=== PATIENT | male | born 1975 ===

== ENCOUNTER → 2018-05-04 | Outpatient (CLI) | payer OTHER | END | disposition home or self-care (01) | LOC: LAB SHORT 16:26 → LAB 16:26 | DX: B35.1 Tinea unguium (principal); L60.2 Onychogryphosis | CPT/HCPCS: 88305; 88312 ==

== ENCOUNTER → 2019-01-17 | Outpatient (CLI) | payer OTHER ==
[2019-01-19 01:08] LABS: CHLAMYDIA TRACHOMATIS, NAA Negative (Negative); NEISSERIA GONORRHOEAE, NAA Negative (Negative)
== END ==
LOC: LAB 17:30 → LAB SHORT 17:30
PROVIDERS: Registered Nurse Community Health
DX: Z11.3 Encounter for screening for infections with a predominantly sexual mode of transmission (principal)
CPT/HCPCS: 87491; 87591

== ENCOUNTER 2022-10-01 02:36 | Emergency (ER) | payer OTHER ==
[~2022-10-01] VITALS: Ht 182.9 cm; Wt 108.0 kg
[2022-10-01 04:49] LABS: BASOPHILS ABSOLUTE AUTO 0.07 K/mm3 (0.00-0.23); BASOPHILS PERCENT AUTO 1 % (0-2); EOSINOPHILS ABSOLUTE AUTO 0.51 K/mm3 (0.00-0.68); EOSINOPHILS PERCENT AUTO 4 % (0-6); Hematocrit 37.8 % (37.0-53.0); Hemoglobin 13.4 g/dL (13.5-17.5); IMMATURE GRAN ABSOLUTE AUTO 0.04 K/mm3 (0.00-0.10); IMMATURE GRAN PERCENT AUTO 0 % (0-1); LYMPHOCYTES ABSOLUTE AUTO 2.29 K/mm3 (0.84-5.20); LYMPHOCYTES PERCENT AUTO 19 % (21-46); MONOCYTES ABSOLUTE AUTO 0.96 K/mm3 (0.16-1.47); MONOCYTES PERCENT AUTO 8 % (4-13); Mean Corpuscular HGB 30.8 pg (26.0-34.0); Mean Corpuscular HGB Conc 35.4 g/dL (31.5-36.5); Mean Corpuscular Volume 87 fL (80-100); Mean Platelet Volume 9.9 fL (9.1-12.4); NEUTROPHILS ABSOLUTE AUTO 8.34 K/mm3 (1.96-9.15); NEUTROPHILS PERCENT AUTO 68 % (41-73); Platelet Count 288 K/mm3 (150-400); RDW Coefficient Variation 12.7 % (11.7-14.2); RDW Standard Deviation 40.2 fL (35.1-46.3); Red Blood Cell Count 4.35 M/mm3 (4.30-5.90); White Blood Cell Count 12.21 K/mm3 (4.00-11.30)
[2022-10-01 05:31] LABS: Albumin, Blood 3.1 g/dL (3.4-5.0); Albumin/Globulin Ratio 0.8 (0.8-1.8); Bilirubin, Total 0.3 mg/dL (0.1-1.0); Bun/Creatinine Ratio 12.6 (12.0-20.0); Calcium, Blood 8.6 mg/dL (8.5-10.1); Creatinine, Blood 0.96 mg/dL (0.60-1.20); Globulin, Blood 3.9 g/dL (2.2-4.0); Potassium, Blood 4.1 mmol/L (3.5-5.5)
[2022-10-01] MEDS ORDERED: MAGCIT300 PO (07:06)
[2022-10-01] MEDS ORDERED: DOCU100 PO (07:06)
[2022-10-01] MEDS ORDERED: PROBIOTIC1 EA13 PO (07:06)
== END 2022-10-01 07:32 | disposition home or self-care (01) ==
LOC: ER 02:36
PROVIDERS: Student in an Organized Health Care Education/Training Program
DX: R10.9 Unspecified abdominal pain (principal); K59.00 Constipation, unspecified; E11.9 Type 2 diabetes mellitus without complications; F17.210 Nicotine dependence, cigarettes, uncomplicated; Z88.8 Allergy status to other drugs, medicaments and biological substances
CPT/HCPCS: 36415; 74018; 80053; 83690; 85025

== ENCOUNTER 2022-10-08 16:31 | Inpatient (IN) | payer OTHER ==
[~2022-10-08] VITALS: Ht 182.9 cm; Wt 103.4 kg
[~2022-10-08 16:31] MED LIST: DOCU100 PO; MAGCIT300 PO; PROBIOTIC1 EA13 PO
[2022-10-08 17:02] LABS: BASOPHILS ABSOLUTE AUTO 0.08 K/mm3 (0.00-0.23); BASOPHILS PERCENT AUTO 1 % (0-2); EOSINOPHILS ABSOLUTE AUTO 0.44 K/mm3 (0.00-0.68); EOSINOPHILS PERCENT AUTO 3 % (0-6); Hematocrit 41.4 % (37.0-53.0); Hemoglobin 14.6 g/dL (13.5-17.5); IMMATURE GRAN ABSOLUTE AUTO 0.09 K/mm3 (0.00-0.10); IMMATURE GRAN PERCENT AUTO 1 % (0-1); LYMPHOCYTES ABSOLUTE AUTO 2.38 K/mm3 (0.84-5.20); LYMPHOCYTES PERCENT AUTO 17 % (21-46); MONOCYTES ABSOLUTE AUTO 1.13 K/mm3 (0.16-1.47); MONOCYTES PERCENT AUTO 8 % (4-13); Mean Corpuscular HGB 30.7 pg (26.0-34.0); Mean Corpuscular HGB Conc 35.3 g/dL (31.5-36.5); Mean Corpuscular Volume 87 fL (80-100); Mean Platelet Volume 9.6 fL (9.1-12.4); NEUTROPHILS ABSOLUTE AUTO 9.84 K/mm3 (1.96-9.15); NEUTROPHILS PERCENT AUTO 71 % (41-73); Platelet Count 365 K/mm3 (150-400); RDW Coefficient Variation 12.4 % (11.7-14.2); RDW Standard Deviation 39.7 fL (35.1-46.3); Red Blood Cell Count 4.76 M/mm3 (4.30-5.90); White Blood Cell Count 13.96 K/mm3 (4.00-11.30)
[2022-10-08 17:26] LABS: Albumin, Blood 3.7 g/dL (3.4-5.0); Albumin/Globulin Ratio 0.8 (0.8-1.8); Bilirubin, Total 0.4 mg/dL (0.1-1.0); Bun/Creatinine Ratio 10.1 (12.0-20.0); Calcium, Blood 9.9 mg/dL (8.5-10.1); Globulin, Blood 4.8 g/dL (2.2-4.0); Potassium, Blood 3.9 mmol/L (3.5-5.5); Total Protein, Blood 8.5 g/dL (6.4-8.2)
[2022-10-08] MEDS ORDERED: Zoloft50 MG PO (18:23)
[2022-10-08] MEDS ORDERED: METF500 PO (18:23)
[2022-10-08] MEDS ORDERED: Zestril30 MG PO (18:23)
[2022-10-08] MEDS ORDERED: GABA300 PO (18:24)
[2022-10-08] MEDS ORDERED: EMTRICITABINE-1 EAC1 PO (18:24)
[2022-10-08] MEDS ORDERED: TRULICITY1.5 MG/0.1 SC (18:24)
[2022-10-08] MEDS ORDERED: BUPR75 PO (18:24)
[2022-10-08] MEDS ORDERED: Simvastatin40 MG PO (18:24)
[2022-10-08 19:08] LABS: Triglycerides 253 mg/dL (30-160)
[2022-10-08] MEDS ORDERED: PAROEX473 ML PO (21:14)
[2022-10-08] MEDS ORDERED: SILDENAFIL CIT100 MG PO (21:17)
--- NOTE | 2022-10-08 22:22 | NUR ---
PATIENT IS A NEW ADMIT FROM THE ED. SBA TRANSFER FROM [facility] TO BED. AXO X 4 REPORTING A DIRECTOR OF ACCOUNTS RECEIVABLE FOR TWENTY YEARS. ON ROOM AIR. DENIES CHEST PAIN AND SOB. TOLERATING MILD ABDOMEN PAIN AND NAUSEA AT THIS TIME, REFUSING PAIN MEDICATION AND ASKED FOR ICE CHIPS INSTEAD. LR INFUSING AT 150 mL/HR FROM THE ED. ORIENTED TO ROOM AND CALL LIGHT SYSTEM. WCTM.
--- NOTE | 2022-10-09 04:23 | NUR ---
SHIFT SUMMARY PATIENT HAD NO ACUTE CHANGES. ALERT AND ORIENTED. INDEPENDENT BUT CHOOSING TO USE URINAL AT BEDSIDE. PIV REMAINS INTACT. LR INFUSING AT 150 mL/HR. REPORTED ABDOMEN PAIN X TWO AND IV FENTANYL 25 MCG GIVEN PER EMAR WITH GOOD EFFECT. PATIENT ABLE TO SLEEP. MILD NAUSEA AT TIMES REFUSING MEDICATION. ON ROOM AIR. CBG Q6 CHECK 157. REPORTED DRANK PART OF FOUNTAIN DRINK AND HAD INCREASED ABDOMEN PAIN. CLEAR LIQUID DIET. CALL LIGHT IN REACH. BED IN LOWEST POSITION. WILL CONTINUE TO MONITOR UNTIL DAY SHIFT NURSE ASSUMES CARE.
[2022-10-09 05:26] LABS: BASOPHILS ABSOLUTE AUTO 0.04 K/mm3 (0.00-0.23); BASOPHILS PERCENT AUTO 0 % (0-2); EOSINOPHILS ABSOLUTE AUTO 0.59 K/mm3 (0.00-0.68); EOSINOPHILS PERCENT AUTO 6 % (0-6); Hematocrit 32.7 % (37.0-53.0); Hemoglobin 11.5 g/dL (13.5-17.5); IMMATURE GRAN ABSOLUTE AUTO 0.07 K/mm3 (0.00-0.10); IMMATURE GRAN PERCENT AUTO 1 % (0-1); LYMPHOCYTES ABSOLUTE AUTO 2.95 K/mm3 (0.84-5.20); LYMPHOCYTES PERCENT AUTO 29 % (21-46); MONOCYTES PERCENT AUTO 10 % (4-13); Mean Corpuscular HGB 30.7 pg (26.0-34.0); Mean Corpuscular HGB Conc 35.2 g/dL (31.5-36.5); Mean Corpuscular Volume 87 fL (80-100); Mean Platelet Volume 9.9 fL (9.1-12.4); NEUTROPHILS PERCENT AUTO 54 % (41-73); Platelet Count 300 K/mm3 (150-400); RDW Coefficient Variation 12.5 % (11.7-14.2); RDW Standard Deviation 40.3 fL (35.1-46.3); Red Blood Cell Count 3.74 M/mm3 (4.30-5.90); White Blood Cell Count 10.05 K/mm3 (4.00-11.30)
[2022-10-09 06:39] LABS: Bun/Creatinine Ratio 9.8 (12.0-20.0); Calcium, Blood 8.6 mg/dL (8.5-10.1); Creatinine, Blood 0.92 mg/dL (0.60-1.20); Potassium, Blood 3.5 mmol/L (3.5-5.5)
--- NOTE | 2022-10-09 16:23 | NUR ---
PT AOX4 AND COOPERATIVE OF CARE. PT HAS CONTINUED TO HAVE ABD PAIN, BUT STATES PAIN IS IMPROVING. PT HAS BEEN ABLE TO TOLERATE ORAL MEDICATIONS AND CLEAR DIET. PT IS INDEPENDENT IN ROOM AND CALLS APPROPRIATELY. WILL CONITINUE MONITOR CALL LIGHT WITHIN REACH.
--- NOTE | 2022-10-10 04:15 | NUR ---
SHIFT SUMMARY PATIENT HAD NO ACUTE CHANGES OBSERVED. AXOX 4 AND INDEPENDENT IN ROOM. REPORTED ABDOMEN PAIN X ONE AND TYLENOL 650 MG GIVEN AFTER PATIENT DID NOT WANT NORCO. VSS/AFEBRILE. DENIES CHEST PAIN, SOB, AND N/V. Q6 CBG 273. SLEPT MOST OF THE SHIFT. CALL LIGHT IN REACH. BED IN LOWEST POSITION. WILL CONTINUE TO MONITOR UNTIL DAY SHIFT NURSE ASSUMES CARE.
[2022-10-10 06:22] LABS: Albumin, Blood 2.6 g/dL (3.4-5.0); Albumin/Globulin Ratio 0.6 (0.8-1.8); Bilirubin, Total 0.4 mg/dL (0.1-1.0); Bun/Creatinine Ratio 7.5 (12.0-20.0); Calcium, Blood 8.6 mg/dL (8.5-10.1); Creatinine, Blood 0.94 mg/dL (0.60-1.20); Globulin, Blood 4.1 g/dL (2.2-4.0); Potassium, Blood 3.6 mmol/L (3.5-5.5); Total Protein, Blood 6.7 g/dL (6.4-8.2)
[2022-10-10] MEDS ORDERED: ROXICODONE5 MG PO (15:45)
[2022-10-10] MEDS ORDERED: SENN187 PO (15:46)
--- NOTE | 2022-10-10 16:48 | NUR ---
DISCHARGE PT A&OX4 AT TIME OF DC. MOM PROVIDING TRANSPORT, PT PROVIDED W/ HARD SCRIPT. IV DCED. TOLERATING PO INTAKE. REFUSED ESCORT TO [facility].
== END 2022-10-10 16:20 | disposition short-term general hospital (02) | DRG 440 ==
LOC: ER 16:31 → MEDS 16:32
PROVIDERS: Family Medicine; Physician Assistant; Student in an Organized Health Care Education/Training Program; ADMIT Internal Medicine
DX: K85.90 Acute pancreatitis without necrosis or infection, unspecified (principal); E11.9 Type 2 diabetes mellitus without complications; I10 Essential (primary) hypertension; F32.9 Major depressive disorder, single episode, unspecified; K86.1 Other chronic pancreatitis; F17.210 Nicotine dependence, cigarettes, uncomplicated; F12.10 Cannabis abuse, uncomplicated; Z79.84 Long term (current) use of oral hypoglycemic drugs; Z79.811 Long term (current) use of aromatase inhibitors; Z90.49 Acquired absence of other specified parts of digestive tract; Z88.8 Allergy status to other drugs, medicaments and biological substances; Z79.899 Other long term (current) drug therapy; Z87.19 Personal history of other diseases of the digestive system; Z98.890 Other specified postprocedural states
CPT/HCPCS: 36415; 74177; 80048; 80053; 82947; 83690; 84478; 85025; 96361; 96374; 96375; 96376; 99284-25; A9270; C9113; G0378; J1170; J1815; J2405; J3010; J7120; Q9967

== ENCOUNTER 2023-03-15 21:04 | Emergency (ER) | payer OTHER ==
[~2023-03-15] VITALS: Ht 180.3 cm; Wt 101.6 kg
[~2023-03-15 21:04] MED LIST changes: +BUPR75 PO; +EMTRICITABINE-1 EAC1 PO; +GABA300 PO; +METF500 PO; +PAROEX473 ML PO; +ROXICODONE5 MG PO; +SENN187 PO; +SILDENAFIL CIT100 MG PO; +Simvastatin40 MG PO; +TRULICITY1.5 MG/0.1 SC; +Zestril30 MG PO; +Zoloft50 MG PO
[2023-03-15 21:25] VITALS: BP 168/103
[2023-03-15 21:56] LABS: BASOPHILS ABSOLUTE AUTO 0.07 K/mm3 (0.00-0.23); BASOPHILS PERCENT AUTO 1 % (0-2); EOSINOPHILS ABSOLUTE AUTO 0.46 K/mm3 (0.00-0.68); EOSINOPHILS PERCENT AUTO 4 % (0-6); Hematocrit 39.2 % (37.0-53.0); Hemoglobin 13.2 g/dL (13.5-17.5); IMMATURE GRAN ABSOLUTE AUTO 0.05 K/mm3 (0.00-0.10); IMMATURE GRAN PERCENT AUTO 0 % (0-1); LYMPHOCYTES ABSOLUTE AUTO 2.88 K/mm3 (0.84-5.20); LYMPHOCYTES PERCENT AUTO 24 % (21-46); MONOCYTES ABSOLUTE AUTO 1.19 K/mm3 (0.16-1.47); MONOCYTES PERCENT AUTO 10 % (4-13); Mean Corpuscular HGB 30.3 pg (26.0-34.0); Mean Corpuscular HGB Conc 33.7 g/dL (31.5-36.5); Mean Corpuscular Volume 90 fL (80-100); Mean Platelet Volume 9.9 fL (9.1-12.4); NEUTROPHILS ABSOLUTE AUTO 7.17 K/mm3 (1.96-9.15); NEUTROPHILS PERCENT AUTO 61 % (41-73); Platelet Count 273 K/mm3 (150-400); RDW Coefficient Variation 12.9 % (11.7-14.2); RDW Standard Deviation 42.4 fL (35.1-46.3); Red Blood Cell Count 4.36 M/mm3 (4.30-5.90); White Blood Cell Count 11.82 K/mm3 (4.00-11.30)
[2023-03-15 22:15] LABS: Albumin, Blood 3.3 g/dL (3.4-5.0); Albumin/Globulin Ratio 0.7 (0.8-1.8); Bilirubin, Total 0.3 mg/dL (0.1-1.0); Bun/Creatinine Ratio 20.3 (12.0-20.0); Calcium, Blood 9.3 mg/dL (8.5-10.1); Creatinine, Blood 1.23 mg/dL (0.60-1.20); Globulin, Blood 4.5 g/dL (2.2-4.0); Potassium, Blood 4.9 mmol/L (3.5-5.5); Total Protein, Blood 7.8 g/dL (6.4-8.2)
[2023-03-15] MEDS ORDERED: Keflex500 MG PO (22:25)
[2023-03-23] MEDS ORDERED: TRULICITY0.75 MG/01 SC (01:21)
[2023-03-23] MEDS ORDERED: BASAGLAR K100 UNIT/1 SC (01:22)
[2023-03-23] MEDS ORDERED: ALBU90OI INH (01:23)
== END 2023-03-15 22:40 | disposition home or self-care (01) ==
LOC: ER 21:04
PROVIDERS: Student in an Organized Health Care Education/Training Program
DX: S91.302A Unspecified open wound, left foot, initial encounter (principal); X58.XXXA Exposure to other specified factors, initial encounter; I10 Essential (primary) hypertension; E78.5 Hyperlipidemia, unspecified; E11.40 Type 2 diabetes mellitus with diabetic neuropathy, unspecified; F17.210 Nicotine dependence, cigarettes, uncomplicated; Z88.8 Allergy status to other drugs, medicaments and biological substances; Z79.899 Other long term (current) drug therapy; Z79.84 Long term (current) use of oral hypoglycemic drugs
CPT/HCPCS: 73630; 80053; 83605; 85025; 99283-25; A9270

== ENCOUNTER → 2023-03-19 | Outpatient (CLI) | payer OTHER ==
[~2023-03-19] MED LIST changes: +ALBU90OI INH; +BASAGLAR K100 UNIT/1 SC; +Keflex500 MG PO; +TRULICITY0.75 MG/01 SC
== END | disposition home or self-care (01) ==
LOC: LAB SHORT 11:07 → LAB 11:07
DX: L97.522 Non-pressure chronic ulcer of other part of left foot with fat layer exposed (principal); L03.116 Cellulitis of left lower limb
CPT/HCPCS: 87070; 87077; 87147; 87186; 87205

== ENCOUNTER 2023-04-09 04:31 | Day surgery (SDC) | payer OTHER ==
[~2023-04-09 04:31] MED LIST changes: +Acetaminophen650 M1 PO; +DULCOLAX400 MG/5 M PO; +HUMALOG KW100 UNIT/1 SC; +JUVEN PACKET1 EAC3 PO; +NORVASC10 MG PO; +Percocet 5-3251 EACH PO; +TUMS500 MG PO; +VISBIOME 112.51 EACH PO; +Vancomycin1 GM/2501 IV
== END 2023-04-09 23:02 | disposition home or self-care (01) ==
LOC: WOUND 04:31
PROC: 0JBR0ZZ Excision of Left Foot Subcutaneous Tissue and Fascia, Open Approach (ICD-10-PCS; principal; 2023-04-09)
DX: E11.69 Type 2 diabetes mellitus with other specified complication (principal); E11.621 Type 2 diabetes mellitus with foot ulcer; L97.426 Non-pressure chronic ulcer of left heel and midfoot with bone involvement without evidence of necrosis; M86.9 Osteomyelitis, unspecified; E11.40 Type 2 diabetes mellitus with diabetic neuropathy, unspecified; E78.5 Hyperlipidemia, unspecified; Z88.8 Allergy status to other drugs, medicaments and biological substances; Z87.891 Personal history of nicotine dependence
CPT/HCPCS: 99406; A9270; G0463

== ENCOUNTER 2023-04-16 02:44 | Day surgery (SDC) | payer OTHER ==
[~2023-04-16 02:44] MED LIST changes: -HUMALOG KW100 UNIT/1 SC; +HUMALOG100 UNIT/1 SC
== END 2023-04-16 23:43 | disposition home or self-care (01) ==
LOC: WOUND 02:44
DX: E11.621 Type 2 diabetes mellitus with foot ulcer (principal); L97.523 Non-pressure chronic ulcer of other part of left foot with necrosis of muscle; L97.522 Non-pressure chronic ulcer of other part of left foot with fat layer exposed; E11.69 Type 2 diabetes mellitus with other specified complication; M86.172 Other acute osteomyelitis, left ankle and foot; B95.62 Methicillin resistant Staphylococcus aureus infection as the cause of diseases classified elsewhere; L03.116 Cellulitis of left lower limb; Z72.0 Tobacco use
CPT/HCPCS: A9270

== ENCOUNTER 2023-04-18 00:09 | Emergency (ER) | payer OTHER ==
[~2023-04-18] VITALS: Ht 180.3 cm; Wt 97.5 kg
[2023-04-18 00:44] VITALS: BP 137/78
== END 2023-04-18 03:32 | disposition home or self-care (01) ==
LOC: ER 00:09
DX: T82.524A Displacement of infusion catheter, initial encounter (principal); I10 Essential (primary) hypertension; E78.5 Hyperlipidemia, unspecified; F32.9 Major depressive disorder, single episode, unspecified; E11.40 Type 2 diabetes mellitus with diabetic neuropathy, unspecified; Z79.899 Other long term (current) drug therapy; Z79.2 Long term (current) use of antibiotics; Z79.4 Long term (current) use of insulin; Z88.8 Allergy status to other drugs, medicaments and biological substances
CPT/HCPCS: 71045; 99283-25; A9270; C1751

== ENCOUNTER 2023-04-23 01:15 | Day surgery (SDC) | payer OTHER ==
[~2023-04-23 01:15] MED LIST changes: +HUMALOG KW100 UNIT/1 SC; -HUMALOG100 UNIT/1 SC
== END 2023-04-23 22:58 | disposition home or self-care (01) ==
LOC: WOUND 01:15
DX: E11.621 Type 2 diabetes mellitus with foot ulcer (principal); L97.426 Non-pressure chronic ulcer of left heel and midfoot with bone involvement without evidence of necrosis; L97.523 Non-pressure chronic ulcer of other part of left foot with necrosis of muscle; E11.69 Type 2 diabetes mellitus with other specified complication; M86.172 Other acute osteomyelitis, left ankle and foot; B95.62 Methicillin resistant Staphylococcus aureus infection as the cause of diseases classified elsewhere; Z72.0 Tobacco use; L03.116 Cellulitis of left lower limb
CPT/HCPCS: 73630; A9270; G0463

== ENCOUNTER 2023-04-25 17:03 | Inpatient (IN) | payer OTHER ==
[~2023-04-25] VITALS: Ht 182.9 cm; Wt 103.9 kg
[2023-04-25 18:13] LABS: BASOPHILS ABSOLUTE AUTO 0.09 K/mm3 (0.00-0.23); BASOPHILS PERCENT AUTO 1 % (0-2); EOSINOPHILS ABSOLUTE AUTO 0.65 K/mm3 (0.00-0.68); EOSINOPHILS PERCENT AUTO 6 % (0-6); Hematocrit 33.2 % (37.0-53.0); Hemoglobin 11.5 g/dL (13.5-17.5); IMMATURE GRAN ABSOLUTE AUTO 0.08 K/mm3 (0.00-0.10); IMMATURE GRAN PERCENT AUTO 1 % (0-1); LYMPHOCYTES ABSOLUTE AUTO 3.21 K/mm3 (0.84-5.20); LYMPHOCYTES PERCENT AUTO 31 % (21-46); MONOCYTES ABSOLUTE AUTO 0.92 K/mm3 (0.16-1.47); MONOCYTES PERCENT AUTO 9 % (4-13); Mean Corpuscular HGB 29.5 pg (26.0-34.0); Mean Corpuscular HGB Conc 34.6 g/dL (31.5-36.5); Mean Corpuscular Volume 85 fL (80-100); Mean Platelet Volume 8.9 fL (9.1-12.4); NEUTROPHILS ABSOLUTE AUTO 5.41 K/mm3 (1.96-9.15); NEUTROPHILS PERCENT AUTO 52 % (41-73); Platelet Count 333 K/mm3 (150-400); RDW Coefficient Variation 12.8 % (11.7-14.2); RDW Standard Deviation 39.4 fL (35.1-46.3); White Blood Cell Count 10.36 K/mm3 (4.00-11.30)
[2023-04-25 18:47] LABS: Albumin, Blood 3.6 g/dL (3.4-5.0); Albumin/Globulin Ratio 0.7 (0.8-1.8); Bilirubin, Total 0.4 mg/dL (0.1-1.0); Bun/Creatinine Ratio 25.5 (12.0-20.0); C-REACTIVE PROTEIN, EXT RANGE 4.72 mg/dL (0.000-0.300); Calcium, Blood 9.6 mg/dL (8.5-10.1); Creatinine, Blood 1.1 mg/dL (0.60-1.20); Globulin, Blood 4.9 g/dL (2.2-4.0); Potassium, Blood 4.6 mmol/L (3.5-5.5); Total Protein, Blood 8.5 g/dL (6.4-8.2)
[2023-04-26 02:08] VITALS: BP 141/75
[2023-04-26 05:15] LABS: BASOPHILS ABSOLUTE AUTO 0.07 K/mm3 (0.00-0.23); BASOPHILS PERCENT AUTO 1 % (0-2); EOSINOPHILS ABSOLUTE AUTO 0.91 K/mm3 (0.00-0.68); EOSINOPHILS PERCENT AUTO 11 % (0-6); Hematocrit 28.7 % (37.0-53.0); Hemoglobin 9.9 g/dL (13.5-17.5); IMMATURE GRAN ABSOLUTE AUTO 0.09 K/mm3 (0.00-0.10); IMMATURE GRAN PERCENT AUTO 1 % (0-1); LYMPHOCYTES ABSOLUTE AUTO 2.84 K/mm3 (0.84-5.20); LYMPHOCYTES PERCENT AUTO 34 % (21-46); MONOCYTES ABSOLUTE AUTO 0.84 K/mm3 (0.16-1.47); MONOCYTES PERCENT AUTO 10 % (4-13); Mean Corpuscular HGB 29.3 pg (26.0-34.0); Mean Corpuscular HGB Conc 34.5 g/dL (31.5-36.5); Mean Corpuscular Volume 85 fL (80-100); Mean Platelet Volume 9.2 fL (9.1-12.4); NEUTROPHILS ABSOLUTE AUTO 3.59 K/mm3 (1.96-9.15); NEUTROPHILS PERCENT AUTO 43 % (41-73); Platelet Count 279 K/mm3 (150-400); RDW Coefficient Variation 12.9 % (11.7-14.2); RDW Standard Deviation 39.4 fL (35.1-46.3); Red Blood Cell Count 3.38 M/mm3 (4.30-5.90); White Blood Cell Count 8.34 K/mm3 (4.00-11.30)
[2023-04-26 05:40] LABS: Albumin, Blood 2.9 g/dL (3.4-5.0); Albumin/Globulin Ratio 0.7 (0.8-1.8); Bilirubin, Total 0.3 mg/dL (0.1-1.0); Bun/Creatinine Ratio 27.8 (12.0-20.0); Calcium, Blood 8.6 mg/dL (8.5-10.1); Creatinine, Blood 1.08 mg/dL (0.60-1.20); Potassium, Blood 4.2 mmol/L (3.5-5.5); Total Protein, Blood 6.9 g/dL (6.4-8.2)
[2023-04-26 07:18] VITALS: BP 125/71
--- NOTE | 2023-04-26 11:10 | NUR ---
CALL FROM MARKO AT [facility]; GIVEN UPDATE. 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
--- NOTE | 2023-04-26 11:15 | NUR ---
PER DR MTZ: ADD AC/HS SUGARS WITH MEDIUM SLIDING SCALE COVERAGE.
[2023-04-26 13:37] LABS: Vancomycin, Trough 16.8 ug/mL (5.0-10.0)
[2023-04-26 15:13] VITALS: BP 149/78
--- NOTE | 2023-04-26 20:05 | NUR ---
DAY SHIFT SUMMARY A&Ox4. PLEASANT AND COOPERATIVE WITH CARE. ADA DIET ALL DAY WITH PLANS TO BE NPO AFTER MIDNIGHT; ANTICIPATE SURGICAL REMOVAL OF LEFT 4TH AND 5TH METATARSALS. ABx ALL DAY ALTERNATING BETWEEN ZOSYN AND VANCO. POWERGLIDE NICKO POSITIONAL; BANDAGE CHANGED AND CATHETER NOTED TO BE KINKED. WOUND CARE PROVIDED. PER DR MTZ, OK TO PLACE PICC LINE IF SOMEONE AVAILABLE TO DO SO TONIGHT. SOME TEARFULNESS WHEN TOLD HE'D NEED SURGERY TO REMOVE TOES; FAMILY CAME TO VISIT AND THIS SEEMED TO HELP. ADDITION OF PRN DIPHENHYDRAMINE FOR PRURITIC RASH HE C/O HAVING HAD SINCE SEPTEMBER. REPORT TO ONCOMING RN.
[2023-04-26 21:10] VITALS: BP 142/81
[2023-04-27] VITALS (11 sets, daily range): BP systolic 121–163; BP diastolic 81–97
[2023-04-27 06:19] LABS: Calcium, Blood 8.8 mg/dL (8.5-10.1); Potassium, Blood 4.4 mmol/L (3.5-5.5)
--- NOTE | 2023-04-27 06:30 | NUR ---
SHIFT HEROY, PT ANIOUS ABOUT SURGERY TODAY. PT MORNING THE LOST OF HIS 2 TOES. PT WAS MEDICATED X 2 FOR PAIN. PT CALM AMD COOPERATIVE. CALL LIGHT IN REACH FIRE SAFETY REVIEWED.
[2023-04-27 13:31] LABS: Vancomycin, Trough 16.8 ug/mL (5.0-10.0)
--- NOTE | 2023-04-27 18:07 | NUR ---
SHIFT SUMMARY PT IS ALERT AND ORIENTED X4. SITTING UP IN BED WITH LEFT EXTREMITY ELEVATED. PT RETURNED FROM SURGERY AROUND 1800. I RE-ENFORCED WOUND DRESSING WITH ABD PAD AND LORENZO WRAP. PER ORDER, DO NOT REMOVE UNTIL SURGEON SEES PT AGAIN. PAIN HAD BEEN ADEQUATELY CONTROLLED WITH MEDICATION SO FAR. PT REPORTS BURNING SENSATION WHERE 4TH AND 5TH TOE WERE LOCATED. PT MOTHER IS AT BEDSIDE. BED IS IN THE LOWEST POSITION WITH CALL LIGHT IN REACH.
--- NOTE | 2023-04-28 03:20 | NUR ---
SHIFT SUMMERY. PT MEDICATED FOR PAIN X2. PT RESTING IN BED, WITH LEFT FOOT ELEVATED. PT SO FAR THIS SHIFT HAS NOT NEEDED DRG TO LEFT FOOT REINFORCED. PT HAVING INTERMITANT SLEEP. CALL LIGHT IN REACH.
--- NOTE | 2023-04-28 03:38 | NUR ---
FIRE SAFETY REVIEWED.
[2023-04-28 04:48] LABS: BASOPHILS ABSOLUTE AUTO 0.08 K/mm3 (0.00-0.23); BASOPHILS PERCENT AUTO 1 % (0-2); EOSINOPHILS ABSOLUTE AUTO 0.97 K/mm3 (0.00-0.68); EOSINOPHILS PERCENT AUTO 12 % (0-6); Hematocrit 27.7 % (37.0-53.0); Hemoglobin 9.5 g/dL (13.5-17.5); IMMATURE GRAN ABSOLUTE AUTO 0.03 K/mm3 (0.00-0.10); IMMATURE GRAN PERCENT AUTO 0 % (0-1); LYMPHOCYTES PERCENT AUTO 30 % (21-46); MONOCYTES ABSOLUTE AUTO 0.73 K/mm3 (0.16-1.47); MONOCYTES PERCENT AUTO 9 % (4-13); Mean Corpuscular HGB 29.5 pg (26.0-34.0); Mean Corpuscular HGB Conc 34.3 g/dL (31.5-36.5); Mean Corpuscular Volume 86 fL (80-100); Mean Platelet Volume 8.7 fL (9.1-12.4); NEUTROPHILS ABSOLUTE AUTO 3.94 K/mm3 (1.96-9.15); NEUTROPHILS PERCENT AUTO 48 % (41-73); Platelet Count 280 K/mm3 (150-400); RDW Coefficient Variation 12.7 % (11.7-14.2); RDW Standard Deviation 39.7 fL (35.1-46.3); Red Blood Cell Count 3.22 M/mm3 (4.30-5.90); White Blood Cell Count 8.25 K/mm3 (4.00-11.30)
[2023-04-28 04:57] VITALS: BP 141/80
[2023-04-28 05:08] LABS: Bun/Creatinine Ratio 21.6 (12.0-20.0); Calcium, Blood 8.5 mg/dL (8.5-10.1); Creatinine, Blood 0.97 mg/dL (0.60-1.20)
[2023-04-28 07:38] VITALS: BP 139/76
--- NOTE | 2023-04-28 09:09 | NUR ---
04/28/23 0909 Liz Olivarez VERIFICATIONS: EDIT CHART.
[2023-04-28 15:14] VITALS: BP 137/73
--- NOTE | 2023-04-28 17:01 | NUR ---
SHIFT SUMMARY PT AOX4, INDEPENDENT WITH HIS WHEELCHAIR (TWO WHEEL CART) TO THE BATHROOM, USING THE URINAL IN BED. PT HAS BEEN MEDICATED FOR PAIN THIS SHIFT, PAIN MEDICATIONS CHANGED PER THE EMAR. PT IS TOLERATING THE CHANGE WELL. PG TO THE NICKO, INFUSING OKAY. PT'S MOTHER AT THE BS TODAY. DRESSING LOOKS CDI. ABX ALSO CHANGED PER THE CULTURE. PT ALSO RECEIVED BENADRYL THIS SHIFT C/O ITCHING. PT IS ALSO A AC CBG CHECK. FIRE SAFETY PROTOCOLS AND PROCEDURES DISCUSSED AND PT VERBALIZED UNDERSTANDING. CALL LIGHT WITHIN REACH, BED IN THE LOWEST POSITION. WILL REPORT TO ONCOMING NURSE.
--- NOTE | 2023-04-28 23:28 | NUR ---
shift summery, pt medicated for pain and itching. pt resting well at this time. call light in reach. fire safety reviewed.
[2023-04-29 05:31] VITALS: BP 124/70
[2023-04-29 08:08] VITALS: BP 127/70
[2023-04-29 15:38] VITALS: BP 119/59
--- NOTE | 2023-04-29 17:15 | NUR ---
SHIFT SUMMARY PT AOX4, INDEPENDENT WITH HIS WHEEL CART TO THE BATHROOM. PT C/O PAIN THIS SHIFT AND WAS MEDICATED PER THE EMAR. PT HAS HAD NO OTHER COMPLAINTS. DRESSING TO THE L FOOT CDI. HIS MOTHER WAS AT THE BS THIS SHIFT. FIRE SAFETY PROTOCOLS AND PROCEDURES MAINTAINED, PT VERBALIZED UNDERSTANDING. CALL LIGHT WITHIN REACH, BED IN THE LOWEST POSITION. WILL REPORT TO ONCOMING NURSE.
[2023-04-29 20:12] VITALS: BP 122/80
--- NOTE | 2023-04-30 03:28 | NUR ---
SHIFT SUMMARY- PT ALERT AND ORIENTED. PAIN SEEMS WELL MANAGED WITH ORAL PAIN MEDICATION, DR EPSTEIN CAME AND CHANGED THE PT DRESSING AT HIFT CHANGE, PAIN WAS INCREASED AFTER THE DRESSING CHANGE, PT WAS MEDICATED VIA IV PAIN MEDS. PT ALERT, ORIENTED AND INDEPENDENT IN THE ROOM. PT USES THE CALL LIGHT APPROPRIATELY, CURRENTLY IN BED, CALL LIGHT IN REACH NO S&S OF DISTRESS.
[2023-04-30 05:04] VITALS: BP 159/86
[2023-04-30 08:09] VITALS: BP 132/82
[2023-04-30] MEDS ORDERED: CUBICIN RF500 M1 IV (15:38)
[2023-04-30] MEDS ORDERED: HYDACE10B PO (15:38)
[2023-04-30 16:07] VITALS: BP 123/71
--- NOTE | 2023-04-30 17:51 | NUR ---
DISCHARGE SUMMARY PT AxOx4. PLEASANT AND COOPERATIVE WITH CARE. PT POST OP DAY 3 FROM LEFT 4TH AND 5TH TOE AMPUTATION/RESECTION ON 4TH METATARSAL. PT REPORTS MANAGABLE PAIN THIS SHIFT, MEDS ADMINISTERED PER EMAR. POT LINER IN FOR CONSULT, PLACED PORTABLE WOUND VAC. PT IS DISCHARGING HOME TODAY WITH SIGNIFICANT OTHER. PT GIVEN IV ABX THIS AM. PROVIDED DC INSTRUCTIONS TO PATIENT INCLUDING DC MEDICATION LIST, NEED FOR FOLLOW UP APPOINTMENTS INCLUDING PODIATRY AND PCP, OUTPATIENT INFUSION SCHEDULE AND OUTPATIENT WOUND CAR, AND PATIENT EDUCATION. PT WAS ALSO PROVIDED EDUCATION ON FIRE RISK/SAFETY WITH VERBALIZED UNDERSTANDING. PT WAS SAFELY ESCORTED OUT VIA KNEE SCOOTER WITH THIS RN.
== END 2023-04-30 17:44 | disposition home health service (06) | DRG 617 ==
LOC: ER 17:03 → MEDS 17:04 → ER 17:04 → MEDS 17:04
PROVIDERS: Internal Medicine; Physician Assistant; Podiatrist; ADMIT Internal Medicine
PROC: 0Y6Y0Z0 Detachment at Left 5th Toe, Complete, Open Approach (ICD-10-PCS; 2023-04-27)
PROC: 0QBP0ZZ Excision of Left Metatarsal, Open Approach (ICD-10-PCS; 2023-04-27)
PROC: 0Y6W0Z0 Detachment at Left 4th Toe, Complete, Open Approach (ICD-10-PCS; principal; 2023-04-27 15:30)
DX: E11.69 Type 2 diabetes mellitus with other specified complication (principal); E11.52 Type 2 diabetes mellitus with diabetic peripheral angiopathy with gangrene; I96 Gangrene, not elsewhere classified; M86.8X7 Other osteomyelitis, ankle and foot; S91.105A Unspecified open wound of left lesser toe(s) without damage to nail, initial encounter; E11.42 Type 2 diabetes mellitus with diabetic polyneuropathy; I10 Essential (primary) hypertension; E11.621 Type 2 diabetes mellitus with foot ulcer; L97.524 Non-pressure chronic ulcer of other part of left foot with necrosis of bone; F32.9 Major depressive disorder, single episode, unspecified; D63.8 Anemia in other chronic diseases classified elsewhere; F41.9 Anxiety disorder, unspecified; E78.5 Hyperlipidemia, unspecified; F17.210 Nicotine dependence, cigarettes, uncomplicated; Z91.038 Other insect allergy status; Z88.8 Allergy status to other drugs, medicaments and biological substances; Z79.899 Other long term (current) drug therapy; Z79.4 Long term (current) use of insulin; Z79.2 Long term (current) use of antibiotics; Z79.891 Long term (current) use of opiate analgesic; Z90.49 Acquired absence of other specified parts of digestive tract; Z98.890 Other specified postprocedural states
CPT/HCPCS: 36415; 73660; 80048; 80053; 80202; 82947; 85025; 86140; 87071; 87075; 87205; 88305; 88311; 96365; 96366; 96368; 96375; 96376; 99284-25; A9270; C1713; G0378; J0878; J1170; J1815; J2001; J2250; J2405; J2543; J2704; J3010; J3370; J7030; J7050; J7120

== ENCOUNTER 2023-05-01 07:02 | Day surgery (SDC) | payer OTHER ==
[~2023-05-01 07:02] MED LIST changes: +CUBICIN RF500 M1 IV; +HYDACE10B PO
[2023-05-01 14:10] VITALS: BP 134/82
--- NOTE | 2023-05-01 15:15 | NUR ---
PT C/O NAUSEA OFF AND ON SINCE DISCHARGE. PC TO PCP'S OFFICE AT [facility]. SPOKE WITH LILIA STARKS. WHO WILL TALK WITH MD ABOUT GETTING A PRESCRIPTION FOR ZOFRAN INTO [facility] IN [place]. PT NOTIFIED THAT PCP'S OFFICE IS WORKING ON PRESCRIPTION.
== END 2023-05-01 14:48 | disposition home or self-care (01) ==
LOC: ATC 07:02
DX: E11.69 Type 2 diabetes mellitus with other specified complication (principal); M86.172 Other acute osteomyelitis, left ankle and foot; E78.5 Hyperlipidemia, unspecified; F32.A Depression, unspecified; E11.40 Type 2 diabetes mellitus with diabetic neuropathy, unspecified
CPT/HCPCS: 96365; J0878

== ENCOUNTER 2023-05-02 00:11 | Day surgery (SDC) | payer OTHER ==
[2023-05-02 14:12] VITALS: BP 148/78
== END 2023-05-02 14:44 | disposition home or self-care (01) ==
LOC: ATC 00:11
DX: E11.69 Type 2 diabetes mellitus with other specified complication (principal); M86.172 Other acute osteomyelitis, left ankle and foot; E78.5 Hyperlipidemia, unspecified; F17.210 Nicotine dependence, cigarettes, uncomplicated; F32.9 Major depressive disorder, single episode, unspecified; G62.9 Polyneuropathy, unspecified; Z88.8 Allergy status to other drugs, medicaments and biological substances
CPT/HCPCS: 96365; J0878

== ENCOUNTER 2023-05-03 03:43 | Day surgery (SDC) | payer OTHER ==
[2023-05-03 14:33] VITALS: BP 145/84
== END 2023-05-03 14:45 | disposition home or self-care (01) ==
LOC: ATC 03:43
DX: M86.172 Other acute osteomyelitis, left ankle and foot (principal); E78.5 Hyperlipidemia, unspecified; E11.40 Type 2 diabetes mellitus with diabetic neuropathy, unspecified
CPT/HCPCS: 96365; J0878

== ENCOUNTER 2023-05-04 00:10 | Day surgery (SDC) | payer OTHER ==
[2023-05-04 14:10] VITALS: BP 141/86
--- NOTE | 2023-05-04 15:27 | NUR ---
STAFF MIDWIFE CHANGED PT'S DRESSING WHILE HIS ANTIBIOTIC WAS RUNNING AND FINISHED HIS DRESSING AT 1525.
== END 2023-05-04 15:25 | disposition home or self-care (01) ==
LOC: ATC 00:10
DX: E11.69 Type 2 diabetes mellitus with other specified complication (principal); M86.172 Other acute osteomyelitis, left ankle and foot; F17.210 Nicotine dependence, cigarettes, uncomplicated; E78.5 Hyperlipidemia, unspecified; F32.A Depression, unspecified; E11.40 Type 2 diabetes mellitus with diabetic neuropathy, unspecified
CPT/HCPCS: 96365; J0878

== ENCOUNTER 2023-05-04 00:12 | Day surgery (SDC) | payer OTHER | END 2023-05-04 22:49 | disposition home or self-care (01) | LOC: WOUND 00:12 | DX: S91.302A Unspecified open wound, left foot, initial encounter (principal); E11.621 Type 2 diabetes mellitus with foot ulcer; E11.69 Type 2 diabetes mellitus with other specified complication; M86.172 Other acute osteomyelitis, left ankle and foot; L03.116 Cellulitis of left lower limb; B95.62 Methicillin resistant Staphylococcus aureus infection as the cause of diseases classified elsewhere; Z72.0 Tobacco use; Z89.422 Acquired absence of other left toe(s); X58.XXXA Exposure to other specified factors, initial encounter; E78.5 Hyperlipidemia, unspecified; F32.A Depression, unspecified; E11.40 Type 2 diabetes mellitus with diabetic neuropathy, unspecified | CPT/HCPCS: 96365; A9270; J0878 ==

== ENCOUNTER 2023-05-05 02:12 | Day surgery (SDC) | payer OTHER ==
[2023-05-05 14:15] VITALS: BP 127/87
== END 2023-05-05 14:42 | disposition home or self-care (01) ==
LOC: ATC 02:12
DX: M86.172 Other acute osteomyelitis, left ankle and foot (principal); E78.5 Hyperlipidemia, unspecified; F32.9 Major depressive disorder, single episode, unspecified; E11.40 Type 2 diabetes mellitus with diabetic neuropathy, unspecified
CPT/HCPCS: 96365; J0878

== ENCOUNTER 2023-05-06 02:27 | Day surgery (SDC) | payer OTHER | END 2023-05-06 22:55 | disposition home or self-care (01) | LOC: WOUND 02:27 | DX: E11.621 Type 2 diabetes mellitus with foot ulcer (principal); M86.172 Other acute osteomyelitis, left ankle and foot; E11.69 Type 2 diabetes mellitus with other specified complication; Z89.422 Acquired absence of other left toe(s); B95.62 Methicillin resistant Staphylococcus aureus infection as the cause of diseases classified elsewhere; Z72.0 Tobacco use; L03.116 Cellulitis of left lower limb ==

== ENCOUNTER 2023-05-06 02:30 | Day surgery (SDC) | payer OTHER ==
[2023-05-06 13:59] VITALS: BP 117/76
== END 2023-05-06 14:28 | disposition home or self-care (01) ==
LOC: ATC 02:30
DX: E11.69 Type 2 diabetes mellitus with other specified complication (principal); M86.172 Other acute osteomyelitis, left ankle and foot; F32.A Depression, unspecified; E11.40 Type 2 diabetes mellitus with diabetic neuropathy, unspecified; Z88.8 Allergy status to other drugs, medicaments and biological substances; E78.5 Hyperlipidemia, unspecified
CPT/HCPCS: 96365; J0878

== ENCOUNTER 2023-05-11 01:24 | Day surgery (SDC) | payer OTHER | END 2023-05-11 22:55 | disposition home or self-care (01) | LOC: WOUND 01:24 | DX: E11.621 Type 2 diabetes mellitus with foot ulcer (principal); L97.525 Non-pressure chronic ulcer of other part of left foot with muscle involvement without evidence of necrosis; E11.69 Type 2 diabetes mellitus with other specified complication; M86.172 Other acute osteomyelitis, left ankle and foot; B95.62 Methicillin resistant Staphylococcus aureus infection as the cause of diseases classified elsewhere; L03.116 Cellulitis of left lower limb; Z72.0 Tobacco use; Z89.422 Acquired absence of other left toe(s) | CPT/HCPCS: A9270 ==

== ENCOUNTER 2023-05-21 08:43 | Day surgery (SDC) | payer OTHER | END 2023-05-21 22:40 | disposition home or self-care (01) | LOC: WOUND 08:43 | DX: E11.621 Type 2 diabetes mellitus with foot ulcer (principal); L97.522 Non-pressure chronic ulcer of other part of left foot with fat layer exposed; E11.69 Type 2 diabetes mellitus with other specified complication; M86.172 Other acute osteomyelitis, left ankle and foot; B95.62 Methicillin resistant Staphylococcus aureus infection as the cause of diseases classified elsewhere; L03.116 Cellulitis of left lower limb; Z72.0 Tobacco use; Z89.422 Acquired absence of other left toe(s) ==

== ENCOUNTER 2023-05-25 01:31 | Day surgery (SDC) | payer OTHER | END 2023-05-25 22:50 | disposition home or self-care (01) | LOC: WOUND 01:31 | DX: E11.621 Type 2 diabetes mellitus with foot ulcer (principal); L97.509 Non-pressure chronic ulcer of other part of unspecified foot with unspecified severity; E11.69 Type 2 diabetes mellitus with other specified complication; M86.172 Other acute osteomyelitis, left ankle and foot; B95.62 Methicillin resistant Staphylococcus aureus infection as the cause of diseases classified elsewhere; L03.116 Cellulitis of left lower limb; Z72.0 Tobacco use ==

== ENCOUNTER 2023-05-29 00:44 | Day surgery (SDC) | payer OTHER | END 2023-05-29 22:48 | disposition home or self-care (01) | LOC: WOUND 00:44 | DX: E11.621 Type 2 diabetes mellitus with foot ulcer (principal); L97.525 Non-pressure chronic ulcer of other part of left foot with muscle involvement without evidence of necrosis; E11.69 Type 2 diabetes mellitus with other specified complication; M86.172 Other acute osteomyelitis, left ankle and foot; L03.116 Cellulitis of left lower limb; B95.62 Methicillin resistant Staphylococcus aureus infection as the cause of diseases classified elsewhere; Z72.0 Tobacco use; Z89.422 Acquired absence of other left toe(s) | CPT/HCPCS: A9270; G0463 ==

== ENCOUNTER 2023-06-11 03:01 | Day surgery (SDC) | payer OTHER | END 2023-06-11 23:07 | disposition home or self-care (01) | LOC: WOUND 03:01 | DX: E11.621 Type 2 diabetes mellitus with foot ulcer (principal); L97.505 Non-pressure chronic ulcer of other part of unspecified foot with muscle involvement without evidence of necrosis; E11.69 Type 2 diabetes mellitus with other specified complication; M86.172 Other acute osteomyelitis, left ankle and foot; B95.62 Methicillin resistant Staphylococcus aureus infection as the cause of diseases classified elsewhere; L03.116 Cellulitis of left lower limb; Z89.422 Acquired absence of other left toe(s); Z72.0 Tobacco use | CPT/HCPCS: G0463 ==

== ENCOUNTER 2023-06-19 08:00 | Day surgery (SDC) | payer OTHER | END 2023-06-19 23:59 | disposition home or self-care (01) | LOC: WOUND 08:00 | DX: E11.621 Type 2 diabetes mellitus with foot ulcer (principal); L97.525 Non-pressure chronic ulcer of other part of left foot with muscle involvement without evidence of necrosis; E11.69 Type 2 diabetes mellitus with other specified complication; M86.172 Other acute osteomyelitis, left ankle and foot; L03.116 Cellulitis of left lower limb; Z72.0 Tobacco use; Z89.422 Acquired absence of other left toe(s) | CPT/HCPCS: A9270; G0463 ==

== ENCOUNTER 2023-06-26 02:36 | Day surgery (SDC) | payer OTHER | END 2023-06-26 22:45 | disposition home or self-care (01) | LOC: WOUND | DX: E11.621 Type 2 diabetes mellitus with foot ulcer (principal); L97.425 Non-pressure chronic ulcer of left heel and midfoot with muscle involvement without evidence of necrosis; M86.172 Other acute osteomyelitis, left ankle and foot; L03.116 Cellulitis of left lower limb; B95.62 Methicillin resistant Staphylococcus aureus infection as the cause of diseases classified elsewhere; Z89.422 Acquired absence of other left toe(s); Z72.0 Tobacco use | CPT/HCPCS: A9270 ==

== ENCOUNTER 2023-07-03 05:09 | Day surgery (SDC) | payer OTHER | END 2023-07-03 22:43 | disposition home or self-care (01) | LOC: WOUND 05:09 | DX: E11.621 Type 2 diabetes mellitus with foot ulcer (principal); L97.525 Non-pressure chronic ulcer of other part of left foot with muscle involvement without evidence of necrosis; E11.69 Type 2 diabetes mellitus with other specified complication; M86.172 Other acute osteomyelitis, left ankle and foot; B95.62 Methicillin resistant Staphylococcus aureus infection as the cause of diseases classified elsewhere; L03.116 Cellulitis of left lower limb; Z89.422 Acquired absence of other left toe(s) | CPT/HCPCS: A9270; G0463 ==

== ENCOUNTER 2023-07-10 03:07 | Day surgery (SDC) | payer OTHER | END 2023-07-10 23:44 | disposition home or self-care (01) | LOC: WOUND 03:07 | DX: E11.621 Type 2 diabetes mellitus with foot ulcer (principal); E11.69 Type 2 diabetes mellitus with other specified complication; M86.172 Other acute osteomyelitis, left ankle and foot; Z89.422 Acquired absence of other left toe(s); B95.62 Methicillin resistant Staphylococcus aureus infection as the cause of diseases classified elsewhere; Z72.0 Tobacco use; L03.116 Cellulitis of left lower limb | CPT/HCPCS: G0463 ==

== ENCOUNTER 2023-07-17 05:09 | Day surgery (SDC) | payer OTHER | END 2023-07-17 22:53 | disposition home or self-care (01) | LOC: WOUND 05:09 | DX: E11.621 Type 2 diabetes mellitus with foot ulcer (principal); L97.522 Non-pressure chronic ulcer of other part of left foot with fat layer exposed; Z89.422 Acquired absence of other left toe(s); E11.69 Type 2 diabetes mellitus with other specified complication; M86.172 Other acute osteomyelitis, left ankle and foot; B95.62 Methicillin resistant Staphylococcus aureus infection as the cause of diseases classified elsewhere; Z72.0 Tobacco use; L03.116 Cellulitis of left lower limb | CPT/HCPCS: 99406; A9270; G0463 ==

== ENCOUNTER 2023-07-24 01:57 | Day surgery (SDC) | payer OTHER | END 2023-07-24 22:51 | disposition home or self-care (01) | LOC: WOUND 01:57 | DX: Z09 Encounter for follow-up examination after completed treatment for conditions other than malignant neoplasm (principal); Z89.422 Acquired absence of other left toe(s); Z72.0 Tobacco use | CPT/HCPCS: A9270; G0463 ==

== ENCOUNTER → 2024-05-13 | Outpatient (CLI) | payer OTHER ==
[2024-05-17 15:21] LABS: APTIMA MEDIA TYPE Urine; C. TRACHOMATIS BY TMA Negative (Negative); N. GONORRHOEAE BY TMA Negative (Negative); SPECIMEN SOURCE Urine
== END | disposition home or self-care (01) ==
LOC: LAB 18:45 → LAB SHORT 18:45
PROVIDERS: Nurse Practitioner Family
DX: Z11.59 Encounter for screening for other viral diseases (principal)
CPT/HCPCS: 87491; 87591

== ENCOUNTER 2024-05-27 02:09 | Day surgery (SDC) | payer OTHER | END 2024-05-27 23:06 | disposition home or self-care (01) | LOC: WOUND 02:09 | DX: E11.621 Type 2 diabetes mellitus with foot ulcer (principal); L97.422 Non-pressure chronic ulcer of left heel and midfoot with fat layer exposed; I10 Essential (primary) hypertension; E11.40 Type 2 diabetes mellitus with diabetic neuropathy, unspecified; E78.5 Hyperlipidemia, unspecified; Z72.0 Tobacco use; Z89.422 Acquired absence of other left toe(s) | CPT/HCPCS: 73630; G0463 ==

== ENCOUNTER 2024-06-03 04:51 | Day surgery (SDC) | payer OTHER | END 2024-06-04 01:43 | disposition home or self-care (01) | LOC: WOUND 04:51 | DX: E11.621 Type 2 diabetes mellitus with foot ulcer (principal); L97.422 Non-pressure chronic ulcer of left heel and midfoot with fat layer exposed; I10 Essential (primary) hypertension; Z72.0 Tobacco use | CPT/HCPCS: G0463 ==

== ENCOUNTER 2024-06-17 01:30 | Day surgery (SDC) | payer OTHER | END 2024-06-18 03:04 | disposition home or self-care (01) | LOC: WOUND 01:30 | DX: L89.891 Pressure ulcer of other site, stage 1 (principal); E11.621 Type 2 diabetes mellitus with foot ulcer; I10 Essential (primary) hypertension; E11.40 Type 2 diabetes mellitus with diabetic neuropathy, unspecified; F17.200 Nicotine dependence, unspecified, uncomplicated | CPT/HCPCS: G0463 ==

== ENCOUNTER 2024-06-24 03:41 | Day surgery (SDC) | payer OTHER | END 2024-06-25 01:27 | disposition home or self-care (01) | LOC: WOUND 03:41 | DX: E11.621 Type 2 diabetes mellitus with foot ulcer (principal); L97.422 Non-pressure chronic ulcer of left heel and midfoot with fat layer exposed; I10 Essential (primary) hypertension; Z72.0 Tobacco use | CPT/HCPCS: G0463 ==

== ENCOUNTER 2024-07-08 03:10 | Day surgery (SDC) | payer OTHER | END 2024-07-08 23:46 | disposition home or self-care (01) | LOC: WOUND 03:10 | DX: E11.621 Type 2 diabetes mellitus with foot ulcer (principal); L97.422 Non-pressure chronic ulcer of left heel and midfoot with fat layer exposed; E11.40 Type 2 diabetes mellitus with diabetic neuropathy, unspecified; I10 Essential (primary) hypertension; Z72.0 Tobacco use; Z89.422 Acquired absence of other left toe(s) | CPT/HCPCS: G0463 ==

== ENCOUNTER 2024-07-11 08:38 | Emergency (ER) | payer OTHER ==
[~2024-07-11] VITALS: Ht 182.9 cm; Wt 111.1 kg
[2024-07-11 09:32] VITALS: BP 139/89
[2024-07-11] MEDS ORDERED: EMTRICITABINE-1 EAC1 PO (09:40)
== END 2024-07-11 09:41 | disposition home or self-care (01) ==
LOC: ER 08:38
DX: Z20.6 Contact with and (suspected) exposure to human immunodeficiency virus [HIV] (principal); E11.9 Type 2 diabetes mellitus without complications; F17.210 Nicotine dependence, cigarettes, uncomplicated
CPT/HCPCS: 99282

== ENCOUNTER 2024-07-22 03:54 | Day surgery (SDC) | payer OTHER ==
[2024-07-22] MEDS ORDERED: Lidocaine HCl 4% Cream 5 GM ONE (08:55)
== END 2024-07-23 03:09 | disposition home or self-care (01) ==
LOC: WOUND 03:54
DX: E11.621 Type 2 diabetes mellitus with foot ulcer (principal); L97.522 Non-pressure chronic ulcer of other part of left foot with fat layer exposed; I10 Essential (primary) hypertension; Z72.0 Tobacco use
CPT/HCPCS: A6213; A9270

== ENCOUNTER 2024-08-08 02:32 | Day surgery (SDC) | payer OTHER ==
[2024-08-08] MEDS ORDERED: Lidocaine HCl 4% Cream 5 GM ONE (08:38)
== END 2024-08-08 23:22 | disposition home or self-care (01) ==
LOC: WOUND 02:32
DX: E11.621 Type 2 diabetes mellitus with foot ulcer (principal); L97.422 Non-pressure chronic ulcer of left heel and midfoot with fat layer exposed; I10 Essential (primary) hypertension; Z72.0 Tobacco use
CPT/HCPCS: A9270

== ENCOUNTER 2024-08-23 01:44 | Day surgery (SDC) | payer OTHER | END 2024-08-23 23:00 | disposition home or self-care (01) | LOC: WOUND 01:44 | DX: E11.621 Type 2 diabetes mellitus with foot ulcer (principal); L97.429 Non-pressure chronic ulcer of left heel and midfoot with unspecified severity; I10 Essential (primary) hypertension; Z72.0 Tobacco use | CPT/HCPCS: G0463 ==